=== PATIENT | male | born 1935 | race Caucasian/White ===

== ENCOUNTER 2018-06-05 17:04 | Inpatient (IN) | payer MEDICARE ==
[2018-06-05] MEDS: SOD CHLORIDE 0.9% 1,950 ML IV (17:38)
[2018-06-05 17:54] LABS: ADD MAN DIFF? NO
[2018-06-05 18:16] LABS: WHITE BLOOD COUNT 20.9 10^3/ul (4.8-10.8)
[2018-06-05 18:16] LABS: BASOPHIL # 0.1 10^3/ul (0.0-0.1); BASOPHILS % 0.2 % (0.0-2.0); EOSINOPHILS % 0.1 % (0.0-7.0); HEMATOCRIT 28.1 % (42.0-52.0); HEMOGLOBIN 9.1 g/dl (14.0-18.0); LYMPHOCYTES % 9.6 % (15.0-51.0); MEAN CORPUSCULAR HEMOGLOBIN 29.9 pg (29.0-33.0); MEAN CORPUSCULAR HGB CONC 32.4 g/dl (32.0-37.0); MEAN CORPUSCULAR VOLUME 92.4 fl (82.0-101.0); MEAN PLATELET VOLUME 11.6 fl (7.4-10.4); MONOCYTE # 1.5 10^3/ul (0.3-0.9); MONOCYTES % 7.2 % (0.0-11.0); NEUTROPHIL # 17.1 10^3/ul (1.6-7.5); NEUTROPHILS % 81.8 % (39.0-77.0); PLATELET COUNT 303 10^3/UL (140-415); RED BLOOD COUNT 3.04 10^6/ul (4.70-6.10); RED CELL DISTRIBUTION WIDTH 13.2 % (11.5-14.5)
[2018-06-05 18:18] LABS: ALANINE AMINOTRANSFERASE 28 IU/L (13-69); ALBUMIN 3.2 g/dl (3.3-4.9); ALBUMIN/GLOBULIN RATIO 0.72; ALKALINE PHOSPHATASE 118 IU/L (42-121); ANION GAP 9 (5-13); ASPARTATE AMINO TRANSFERASE 54 IU/L (15-46); BILIRUBIN,INDIRECT 0.2 mg/dl (0-1.1); BILIRUBIN,TOTAL 0.2 mg/dl (0.2-1.3); BLOOD UREA NITROGEN 82 mg/dl (7-20); CALCIUM 9.2 mg/dl (8.4-10.2); CARBON DIOXIDE 21 mmol/L (21-31); CHLORIDE 106 mmol/L (97-110); CREATININE 1.69 mg/dl (0.61-1.24); GLUCOSE 245 mg/dl (70-220); POTASSIUM 5.4 mmol/L (3.5-5.1); SODIUM 136 mmol/L (135-144); TOTAL PROTEIN 7.6 g/dl (6.1-8.1)
[2018-06-05 18:19] LABS: LACTIC ACID 1.3 mmol/L (0.5-2.0)
[2018-06-05 18:56] LABS: ADD UMIC YES; UR ASCORBIC ACID 20 mg/dL (NEGATIVE); UR BACTERIA MANY /HPF (NONE SEEN); UR BILIRUBIN (Dip) NEGATIVE (NEGATIVE); UR BLOOD (Dip) 2+ mg/dL (NEGATIVE); UR BUDDING YEAST MANY /HPF (NONE SEEN); UR CLARITY TURBID (CLEAR); UR COLOR YELLOW (YELLOW); UR GLUCOSE (Dip) NEGATIVE (NEGATIVE); UR KETONES (Dip) NEGATIVE (NEGATIVE); UR LEUKOCYTE ESTERASE (Dip) 3+ Leu/ul (NEGATIVE); UR NITRITE (Dip) NEGATIVE (NEGATIVE); UR NONSQUAMOUS EPITHELIAL CELL 3 /HPF (NONE SEEN); UR RBC 19 /HPF (0-5); UR SPECIFIC GRAVITY (Dip) 1.012 (1.003-1.030); UR TOTAL PROTEIN (Dip) 2+ mg/dl (NEGATIVE); UR UROBILINOGEN (Dip) NEGATIVE (NEGATIVE); UR WBC > 182 /HPF (0-5)
[2018-06-05] MEDS ORDERED: ONDANSETRON 4 MG INJ IV (19:30)
[2018-06-05] MEDS: PIPER-TAZO 3.375 GM IV (PMX) 100 ML IVPB (19:30)
[2018-06-05] MEDS ORDERED: ACETAMINOPHEN 325 MG TAB PO ×2 (19:30→23:30)
[2018-06-05 23:27] LABS: LACTIC ACID 1.2 mmol/L (0.5-2.0)
[2018-06-05] MEDS: EPOETIN 10000 UNITS/ML VIAL (ONCOLOGY) SC (23:30)
[2018-06-05] MEDS ORDERED: HYDROCODONE/APAP (5/325) TAB PO (23:30)
[2018-06-05] MEDS ORDERED: BISACODYL 10 MG SUPP PR (23:30)
[2018-06-05] MEDS ORDERED: GLUCOSE GEL 15 GRAM TUBE PO ×2 (23:45)
[2018-06-05] MEDS ORDERED: DEXTROSE 50% 50 ML SYRINGE IV (23:45)
[2018-06-05] MEDS ORDERED: GLUCAGON 1 MG INJ IM (23:45)
[2018-06-06] MEDS: CEFTRIAXONE 1 GM/50 ML (PMX) 50 ML IVPB (01:30)
[2018-06-06] MEDS: DEXTROSE 5%-0.45% NACL 1,000 ML IV ×3 (01:35→22:28)
[2018-06-06] MEDS: ACCU-CHEK XX ×4 (02:00→21:00)
[2018-06-06 05:32] LABS: ADD MAN DIFF? NO
[2018-06-06 05:35] LABS: BASOPHIL # 0.1 10^3/ul (0.0-0.1); BASOPHILS % 0.3 % (0.0-2.0); EOSINOPHILS # 0.1 10^3/ul (0.0-0.5); EOSINOPHILS % 0.3 % (0.0-7.0); HEMATOCRIT 27.2 % (42.0-52.0); HEMOGLOBIN 8.8 g/dl (14.0-18.0); LYMPHOCYTES # 1.7 10^3/ul (0.8-2.9); MEAN CORPUSCULAR HEMOGLOBIN 29.8 pg (29.0-33.0); MEAN CORPUSCULAR HGB CONC 32.4 g/dl (32.0-37.0); MEAN CORPUSCULAR VOLUME 92.2 fl (82.0-101.0); MEAN PLATELET VOLUME 11.4 fl (7.4-10.4); MONOCYTE # 1.3 10^3/ul (0.3-0.9); MONOCYTES % 6.8 % (0.0-11.0); NEUTROPHIL # 15.2 10^3/ul (1.6-7.5); NEUTROPHILS % 82.6 % (39.0-77.0); PLATELET COUNT 293 10^3/UL (140-415); RED BLOOD COUNT 2.95 10^6/ul (4.70-6.10)
[2018-06-06 05:35] LABS: WHITE BLOOD COUNT 18.4 10^3/ul (4.8-10.8)
[2018-06-06 06:11] LABS: ANION GAP 10 (5-13); BLOOD UREA NITROGEN 62 mg/dl (7-20); CALCIUM 8.9 mg/dl (8.4-10.2); CARBON DIOXIDE 22 mmol/L (21-31); CHLORIDE 108 mmol/L (97-110); CREATININE 1.56 mg/dl (0.61-1.24); GLUCOSE 245 mg/dl (70-220); POTASSIUM 4.6 mmol/L (3.5-5.1); SODIUM 140 mmol/L (135-144)
[2018-06-06] MEDS: MAGNESIUM HYDROXIDE 30ML CUP PO (10:33)
[2018-06-06] MEDS: DUTASTERIDE 0.5 MG CAP PO (10:33)
[2018-06-06] MEDS: FERROUS SULFATE (EC) 325 MG TAB PO (10:33)
[2018-06-06] MEDS: MEMANTINE 5 MG TAB PO ×2 (10:33→21:05)
[2018-06-06] MEDS: LINAGLIPTIN 5 MG TABLET PO (10:34)
[2018-06-06] MEDS: ASCORBIC ACID 500 MG TAB PO (10:34)
[2018-06-06] MEDS: ASPIRIN (EC) 81 MG TAB PO (10:36)
[2018-06-06] MEDS: ENOXAPARIN 30 MG/0.3 ML SYG SC (10:36)
[2018-06-06] MEDS: INSULIN ASPART [NOVOLOG] 3 ML PEN SC ×4 (10:36→21:00)
[2018-06-06] MEDS: ATORVASTATIN 10 MG TAB PO (21:05)
[2018-06-06] MEDS: TAMSULOSIN (SR) 0.4 MG CAP PO (21:05)
[2018-06-06] MEDS: CEFEPIME 1GM/50 ML (PMX) 50 ML IVPB (21:06)
[2018-06-06] MEDS: MULTIVITAMINS/MINERALS TAB PO (21:08)
[2018-06-06] MEDS: BALSAM PERU/CASTOR OIL 60 GM TUBE TOP (21:09)
[2018-06-06] MEDS: INSULIN GLARGINE [LANTus] (100 UNITS/ML) SYG SC (21:17)
[2018-06-07] MEDS ORDERED: ACCU-CHEK XX (02:00)
[2018-06-07] MEDS: ACCU-CHEK XX ×6 (02:00→20:17)
[2018-06-07 05:48] LABS: ADD MAN DIFF? NO
[2018-06-07 05:54] LABS: WHITE BLOOD COUNT 16.6 10^3/ul (4.8-10.8)
[2018-06-07 05:54] LABS: BASOPHIL # 0.1 10^3/ul (0.0-0.1); BASOPHILS % 0.3 % (0.0-2.0); EOSINOPHILS # 0.2 10^3/ul (0.0-0.5); EOSINOPHILS % 1.1 % (0.0-7.0); HEMATOCRIT 27.4 % (42.0-52.0); HEMOGLOBIN 8.7 g/dl (14.0-18.0); LYMPHOCYTES # 1.7 10^3/ul (0.8-2.9); LYMPHOCYTES % 9.9 % (15.0-51.0); MEAN CORPUSCULAR HEMOGLOBIN 29.4 pg (29.0-33.0); MEAN CORPUSCULAR HGB CONC 31.8 g/dl (32.0-37.0); MEAN CORPUSCULAR VOLUME 92.6 fl (82.0-101.0); MEAN PLATELET VOLUME 11.3 fl (7.4-10.4); MONOCYTE # 1.2 10^3/ul (0.3-0.9); MONOCYTES % 7.5 % (0.0-11.0); NEUTROPHIL # 13.3 10^3/ul (1.6-7.5); NEUTROPHILS % 80.2 % (39.0-77.0); PLATELET COUNT 286 10^3/UL (140-415); RED BLOOD COUNT 2.96 10^6/ul (4.70-6.10)
[2018-06-07 06:24] LABS: ANION GAP 8 (5-13); BLOOD UREA NITROGEN 46 mg/dl (7-20); CALCIUM 8.9 mg/dl (8.4-10.2); CARBON DIOXIDE 22 mmol/L (21-31); CHLORIDE 115 mmol/L (97-110); CREATININE 1.22 mg/dl (0.61-1.24); GLUCOSE 129 mg/dl (70-220); SODIUM 145 mmol/L (135-144)
[2018-06-07 06:25] LABS: MAGNESIUM 2.4 mg/dl (1.7-2.5)
[2018-06-07] MEDS: INSULIN ASPART [NOVOLOG] 3 ML PEN SC ×5 (08:00→20:10)
[2018-06-07] MEDS: ENOXAPARIN 30 MG/0.3 ML SYG SC ×2 (08:02→08:15)
[2018-06-07] MEDS: DUTASTERIDE 0.5 MG CAP PO ×2 (08:02→08:07)
[2018-06-07] MEDS: FERROUS SULFATE (EC) 325 MG TAB PO (08:03)
[2018-06-07] MEDS: ASPIRIN (EC) 81 MG TAB PO (08:03)
[2018-06-07] MEDS: LINAGLIPTIN 5 MG TABLET PO (08:03)
[2018-06-07] MEDS: ASCORBIC ACID 500 MG TAB PO (08:03)
[2018-06-07] MEDS: MULTIVITAMINS/MINERALS TAB PO (08:03)
[2018-06-07] MEDS: MEMANTINE 5 MG TAB PO ×2 (08:03→20:08)
[2018-06-07] MEDS: BALSAM PERU/CASTOR OIL 60 GM TUBE TOP ×2 (08:04→20:11)
[2018-06-07] MEDS: CEFEPIME 1GM/50 ML (PMX) 50 ML IVPB ×2 (08:04→20:08)
[2018-06-07] MEDS: MAGNESIUM HYDROXIDE 30ML CUP PO (08:04)
[2018-06-07] MEDS: FLUCONAZOLE 100 MG TAB PO (13:14)
[2018-06-07] MEDS ORDERED: VANCOMYCIN IV PER PHARMACY XX (15:00)
[2018-06-07] MEDS: DEXTROSE 5%-0.45% NACL 1,000 ML IV (17:29)
[2018-06-07] MEDS: VANCOMYCIN 750 MG (PMX) 250 ML IVPB (17:29)
[2018-06-07] MEDS: ATORVASTATIN 10 MG TAB PO (20:08)
[2018-06-07] MEDS: TAMSULOSIN (SR) 0.4 MG CAP PO (20:08)
[2018-06-07] MEDS: INSULIN GLARGINE [LANTus] (100 UNITS/ML) SYG SC (20:17)
[2018-06-08] MEDS: DEXTROSE 5%-0.45% NACL 1,000 ML IV ×2 (01:30→17:23)
[2018-06-08] MEDS: ACCU-CHEK XX ×5 (02:00→22:19)
[2018-06-08 05:35] LABS: ADD MAN DIFF? NO
[2018-06-08 05:40] LABS: BASOPHILS % 0.2 % (0.0-2.0); EOSINOPHILS # 0.3 10^3/ul (0.0-0.5); EOSINOPHILS % 2.4 % (0.0-7.0); HEMATOCRIT 26.3 % (42.0-52.0); HEMOGLOBIN 8.4 g/dl (14.0-18.0); LYMPHOCYTES # 1.7 10^3/ul (0.8-2.9); MEAN CORPUSCULAR HEMOGLOBIN 29.6 pg (29.0-33.0); MEAN CORPUSCULAR HGB CONC 31.9 g/dl (32.0-37.0); MEAN CORPUSCULAR VOLUME 92.6 fl (82.0-101.0); MEAN PLATELET VOLUME 11.1 fl (7.4-10.4); MONOCYTES % 6.9 % (0.0-11.0); NEUTROPHIL # 11.1 10^3/ul (1.6-7.5); NEUTROPHILS % 77.8 % (39.0-77.0); PLATELET COUNT 285 10^3/UL (140-415); RED BLOOD COUNT 2.84 10^6/ul (4.70-6.10); RED CELL DISTRIBUTION WIDTH 13.1 % (11.5-14.5)
[2018-06-08 05:40] LABS: WHITE BLOOD COUNT 14.2 10^3/ul (4.8-10.8)
[2018-06-08 06:08] LABS: ANION GAP 7 (5-13); BLOOD UREA NITROGEN 34 mg/dl (7-20); CALCIUM 8.6 mg/dl (8.4-10.2); CARBON DIOXIDE 20 mmol/L (21-31); CHLORIDE 114 mmol/L (97-110); GLUCOSE 82 mg/dl (70-220); POTASSIUM 4.2 mmol/L (3.5-5.1); SODIUM 141 mmol/L (135-144)
[2018-06-08 06:10] LABS: CREATININE 1.07 mg/dl (0.61-1.24)
[2018-06-08 06:10] LABS: BLOOD UREA NITROGEN 34 mg/dl (7-20)
[2018-06-08] MEDS: INSULIN ASPART [NOVOLOG] 3 ML PEN SC ×4 (08:00→22:15)
[2018-06-08] MEDS: SILVER SULFADIAZINE 1% 25 GM CR TOP (09:00)
[2018-06-08] MEDS: MAGNESIUM HYDROXIDE 30ML CUP PO (09:00)
[2018-06-08] MEDS: FERROUS SULFATE (EC) 325 MG TAB PO (09:11)
[2018-06-08] MEDS: ASCORBIC ACID 500 MG TAB PO (09:11)
[2018-06-08] MEDS: DUTASTERIDE 0.5 MG CAP PO (09:11)
[2018-06-08] MEDS: ASPIRIN (EC) 81 MG TAB PO (09:11)
[2018-06-08] MEDS: CEFEPIME 1GM/50 ML (PMX) 50 ML IVPB ×2 (09:12→22:15)
[2018-06-08] MEDS: LINAGLIPTIN 5 MG TABLET PO (09:18)
[2018-06-08] MEDS: MULTIVITAMINS/MINERALS TAB PO (09:18)
[2018-06-08] MEDS: MEMANTINE 5 MG TAB PO ×2 (09:18→22:19)
[2018-06-08] MEDS: FLUCONAZOLE 100 MG TAB PO (09:19)
[2018-06-08] MEDS: ENOXAPARIN 30 MG/0.3 ML SYG SC (09:25)
[2018-06-08] MEDS: BALSAM PERU/CASTOR OIL 60 GM TUBE TOP ×2 (09:26→22:19)
[2018-06-08] MEDS: INSULIN GLARGINE [LANTus] (100 UNITS/ML) SYG SC (22:00)
[2018-06-08] MEDS: ATORVASTATIN 10 MG TAB PO (22:18)
[2018-06-08] MEDS: TAMSULOSIN (SR) 0.4 MG CAP PO (22:18)
[2018-06-09] MEDS: ACCU-CHEK XX ×6 (00:44→20:59)
[2018-06-09] MEDS: VANCOMYCIN 500 MG (PMX) 100 ML IVPB (04:56)
[2018-06-09] MEDS: FERROUS SULFATE (EC) 325 MG TAB PO (08:18)
[2018-06-09] MEDS: MULTIVITAMINS/MINERALS TAB PO (08:18)
[2018-06-09] MEDS: ASPIRIN (EC) 81 MG TAB PO (08:18)
[2018-06-09] MEDS: FLUCONAZOLE 100 MG TAB PO (08:19)
[2018-06-09] MEDS: ASCORBIC ACID 500 MG TAB PO (08:19)
[2018-06-09] MEDS: CEFEPIME 1GM/50 ML (PMX) 50 ML IVPB ×2 (08:19→20:51)
[2018-06-09] MEDS: LINAGLIPTIN 5 MG TABLET PO (08:19)
[2018-06-09] MEDS: INSULIN ASPART [NOVOLOG] 3 ML PEN SC ×4 (08:23→20:53)
[2018-06-09] MEDS: ENOXAPARIN 30 MG/0.3 ML SYG SC (08:24)
[2018-06-09] MEDS: BALSAM PERU/CASTOR OIL 60 GM TUBE TOP ×4 (08:25→20:58)
[2018-06-09] MEDS: SILVER SULFADIAZINE 1% 25 GM CR TOP (08:32)
[2018-06-09] MEDS: MEMANTINE 5 MG TAB PO ×2 (08:32→20:52)
[2018-06-09] MEDS: MAGNESIUM HYDROXIDE 30ML CUP PO (08:33)
[2018-06-09] MEDS: DUTASTERIDE 0.5 MG CAP PO (08:47)
[2018-06-09] MEDS: DEXTROSE 5%-0.45% NACL 1,000 ML IV (11:46)
[2018-06-09 12:08] LABS: ADD MAN DIFF? NO
[2018-06-09 12:21] LABS: WHITE BLOOD COUNT 14.4 10^3/ul (4.8-10.8)
[2018-06-09 12:21] LABS: BASOPHILS % 0.2 % (0.0-2.0); EOSINOPHILS # 0.2 10^3/ul (0.0-0.5); EOSINOPHILS % 1.5 % (0.0-7.0); HEMATOCRIT 25.9 % (42.0-52.0); HEMOGLOBIN 8.3 g/dl (14.0-18.0); LYMPHOCYTES # 1.4 10^3/ul (0.8-2.9); MEAN CORPUSCULAR VOLUME 90.6 fl (82.0-101.0); MONOCYTE # 0.9 10^3/ul (0.3-0.9); MONOCYTES % 6.4 % (0.0-11.0); NEUTROPHIL # 11.7 10^3/ul (1.6-7.5); PLATELET COUNT 294 10^3/UL (140-415); RED BLOOD COUNT 2.86 10^6/ul (4.70-6.10)
[2018-06-09 12:36] LABS: ANION GAP 6 (5-13); BLOOD UREA NITROGEN 27 mg/dl (7-20); CALCIUM 8.6 mg/dl (8.4-10.2); CARBON DIOXIDE 22 mmol/L (21-31); CHLORIDE 112 mmol/L (97-110); CREATININE 1.02 mg/dl (0.61-1.24); GLUCOSE 238 mg/dl (70-220); POTASSIUM 3.8 mmol/L (3.5-5.1); SODIUM 140 mmol/L (135-144)
[2018-06-09] MEDS: ATORVASTATIN 10 MG TAB PO (20:52)
[2018-06-09] MEDS: TAMSULOSIN (SR) 0.4 MG CAP PO (20:52)
[2018-06-09] MEDS: INSULIN GLARGINE [LANTus] (100 UNITS/ML) SYG SC (20:57)
[2018-06-10] MEDS: DEXTROSE 5%-0.45% NACL 1,000 ML IV (05:05)
[2018-06-10] MEDS: INSULIN ASPART [NOVOLOG] 3 ML PEN SC ×4 (08:00→21:00)
[2018-06-10] MEDS: ACCU-CHEK XX ×4 (08:25→21:00)
[2018-06-10] MEDS: MAGNESIUM HYDROXIDE 30ML CUP PO (09:07)
[2018-06-10] MEDS: FERROUS SULFATE (EC) 325 MG TAB PO (09:07)
[2018-06-10] MEDS: CEFEPIME 1GM/50 ML (PMX) 50 ML IVPB ×2 (09:07→21:03)
[2018-06-10] MEDS: MEMANTINE 5 MG TAB PO ×2 (09:07→21:04)
[2018-06-10] MEDS: ASCORBIC ACID 500 MG TAB PO (09:07)
[2018-06-10] MEDS: MULTIVITAMINS/MINERALS TAB PO (09:07)
[2018-06-10] MEDS: DUTASTERIDE 0.5 MG CAP PO (09:07)
[2018-06-10] MEDS: FLUCONAZOLE 100 MG TAB PO (09:07)
[2018-06-10] MEDS: SILVER SULFADIAZINE 1% 25 GM CR TOP (09:08)
[2018-06-10] MEDS: LINAGLIPTIN 5 MG TABLET PO (09:08)
[2018-06-10] MEDS: BALSAM PERU/CASTOR OIL 60 GM TUBE TOP ×2 (09:08→21:05)
[2018-06-10] MEDS: ASPIRIN (EC) 81 MG TAB PO (09:08)
[2018-06-10] MEDS: ENOXAPARIN 30 MG/0.3 ML SYG SC (09:11)
[2018-06-10] MEDS: VANCOMYCIN 500 MG (PMX) 100 ML IVPB (17:59)
[2018-06-10] MEDS: INSULIN GLARGINE [LANTus] (100 UNITS/ML) SYG SC (21:03)
[2018-06-10] MEDS: TAMSULOSIN (SR) 0.4 MG CAP PO (21:04)
[2018-06-10] MEDS: ATORVASTATIN 10 MG TAB PO (21:04)
[2018-06-11] MEDS: DEXTROSE 5%-0.45% NACL 1,000 ML IV ×3 (00:46→19:48)
[2018-06-11] MEDS: ACCU-CHEK XX ×5 (02:00→20:56)
[2018-06-11 05:30] LABS: ADD MAN DIFF? NO
[2018-06-11 05:47] LABS: WHITE BLOOD COUNT 10.4 10^3/ul (4.8-10.8)
[2018-06-11 05:47] LABS: BASOPHILS % 0.4 % (0.0-2.0); EOSINOPHILS # 0.2 10^3/ul (0.0-0.5); HEMATOCRIT 24.3 % (42.0-52.0); HEMOGLOBIN 7.8 g/dl (14.0-18.0); LYMPHOCYTES # 1.7 10^3/ul (0.8-2.9); LYMPHOCYTES % 16.6 % (15.0-51.0); MEAN CORPUSCULAR HEMOGLOBIN 29.4 pg (29.0-33.0); MEAN CORPUSCULAR HGB CONC 32.1 g/dl (32.0-37.0); MEAN CORPUSCULAR VOLUME 91.7 fl (82.0-101.0); MEAN PLATELET VOLUME 10.8 fl (7.4-10.4); MONOCYTE # 0.8 10^3/ul (0.3-0.9); MONOCYTES % 7.8 % (0.0-11.0); NEUTROPHIL # 7.5 10^3/ul (1.6-7.5); NEUTROPHILS % 72.2 % (39.0-77.0); PLATELET COUNT 276 10^3/UL (140-415); RED BLOOD COUNT 2.65 10^6/ul (4.70-6.10); RED CELL DISTRIBUTION WIDTH 12.8 % (11.5-14.5)
[2018-06-11 05:59] LABS: ANION GAP 5 (5-13); BLOOD UREA NITROGEN 17 mg/dl (7-20); CALCIUM 8.4 mg/dl (8.4-10.2); CARBON DIOXIDE 21 mmol/L (21-31); CHLORIDE 112 mmol/L (97-110); CREATININE 0.88 mg/dl (0.61-1.24); GLUCOSE 78 mg/dl (70-220); POTASSIUM 3.7 mmol/L (3.5-5.1); SODIUM 138 mmol/L (135-144)
[2018-06-11] MEDS: INSULIN ASPART [NOVOLOG] 3 ML PEN SC ×4 (08:00→20:55)
[2018-06-11] MEDS: CEFEPIME 1GM/50 ML (PMX) 50 ML IVPB ×2 (09:52→20:54)
[2018-06-11] MEDS: DUTASTERIDE 0.5 MG CAP PO (09:52)
[2018-06-11] MEDS: FERROUS SULFATE (EC) 325 MG TAB PO (09:52)
[2018-06-11] MEDS: MAGNESIUM HYDROXIDE 30ML CUP PO (09:52)
[2018-06-11] MEDS: LINAGLIPTIN 5 MG TABLET PO (09:52)
[2018-06-11] MEDS: ASCORBIC ACID 500 MG TAB PO (09:53)
[2018-06-11] MEDS: MEMANTINE 5 MG TAB PO ×2 (09:53→20:54)
[2018-06-11] MEDS: MULTIVITAMINS/MINERALS TAB PO (09:54)
[2018-06-11] MEDS: ASPIRIN (EC) 81 MG TAB PO (09:54)
[2018-06-11] MEDS: FLUCONAZOLE 100 MG TAB PO (09:54)
[2018-06-11] MEDS: ENOXAPARIN 30 MG/0.3 ML SYG SC (09:55)
[2018-06-11] MEDS: SILVER SULFADIAZINE 1% 25 GM CR TOP (09:55)
[2018-06-11] MEDS: BALSAM PERU/CASTOR OIL 60 GM TUBE TOP ×2 (09:56→20:55)
[2018-06-11] MEDS: EPOETIN ALFA-EPBX (NON-ESRD 10,000 UNIT/ML VIAL SC (14:33)
[2018-06-11] MEDS: VANCOMYCIN 500 MG (PMX) 100 ML IVPB (18:06)
[2018-06-11] MEDS: INSULIN GLARGINE [LANTus] (100 UNITS/ML) SYG SC (20:54)
[2018-06-11] MEDS: ATORVASTATIN 10 MG TAB PO (20:54)
[2018-06-11] MEDS: TAMSULOSIN (SR) 0.4 MG CAP PO (20:54)
[2018-06-12] MEDS: ACCU-CHEK XX ×5 (01:49→20:45)
[2018-06-12 05:23] LABS: ADD MAN DIFF? NO
[2018-06-12 05:29] LABS: HEMATOCRIT 28.3 % (42.0-52.0); MEAN CORPUSCULAR HGB CONC 31.8 g/dl (32.0-37.0); MEAN CORPUSCULAR VOLUME 91.3 fl (82.0-101.0); PLATELET COUNT 286 10^3/UL (140-415); RED CELL DISTRIBUTION WIDTH 12.9 % (11.5-14.5)
[2018-06-12 05:29] LABS: WHITE BLOOD COUNT 9.9 10^3/ul (4.8-10.8)
[2018-06-12 05:30] LABS: BASOPHILS % 0.4 % (0.0-2.0); EOSINOPHILS # 0.2 10^3/ul (0.0-0.5); EOSINOPHILS % 1.6 % (0.0-7.0); LYMPHOCYTES # 1.7 10^3/ul (0.8-2.9); LYMPHOCYTES % 16.7 % (15.0-51.0); MONOCYTE # 0.7 10^3/ul (0.3-0.9); MONOCYTES % 7.2 % (0.0-11.0); NEUTROPHIL # 7.2 10^3/ul (1.6-7.5); NEUTROPHILS % 72.9 % (39.0-77.0)
[2018-06-12 06:13] LABS: ANION GAP 9 (5-13); BLOOD UREA NITROGEN 14 mg/dl (7-20); CALCIUM 8.4 mg/dl (8.4-10.2); CARBON DIOXIDE 21 mmol/L (21-31); CHLORIDE 107 mmol/L (97-110); CREATININE 0.77 mg/dl (0.61-1.24); GLUCOSE 82 mg/dl (70-220); POTASSIUM 3.9 mmol/L (3.5-5.1); SODIUM 137 mmol/L (135-144)
[2018-06-12] MEDS: INSULIN ASPART [NOVOLOG] 3 ML PEN SC ×4 (08:00→20:44)
[2018-06-12] MEDS: FLUCONAZOLE 100 MG TAB PO (09:17)
[2018-06-12] MEDS: DUTASTERIDE 0.5 MG CAP PO (09:18)
[2018-06-12] MEDS: FERROUS SULFATE (EC) 325 MG TAB PO (09:18)
[2018-06-12] MEDS: MEMANTINE 5 MG TAB PO ×2 (09:18→20:41)
[2018-06-12] MEDS: CEFEPIME 1GM/50 ML (PMX) 50 ML IVPB ×2 (09:19→20:41)
[2018-06-12] MEDS: MAGNESIUM HYDROXIDE 30ML CUP PO (09:19)
[2018-06-12] MEDS: LINAGLIPTIN 5 MG TABLET PO (09:19)
[2018-06-12] MEDS: ASCORBIC ACID 500 MG TAB PO (09:19)
[2018-06-12] MEDS: MULTIVITAMINS/MINERALS TAB PO (09:19)
[2018-06-12] MEDS: ASPIRIN (EC) 81 MG TAB PO (09:19)
[2018-06-12] MEDS: BALSAM PERU/CASTOR OIL 60 GM TUBE TOP ×2 (09:20→20:44)
[2018-06-12] MEDS: SILVER SULFADIAZINE 1% 25 GM CR TOP (09:20)
[2018-06-12] MEDS: ENOXAPARIN 30 MG/0.3 ML SYG SC (09:21)
[2018-06-12] MEDS: DEXTROSE 5%-0.45% NACL 1,000 ML IV ×2 (15:05→22:10)
[2018-06-12] MEDS: EPOETIN 10000 UNITS/ML VIAL (ONCOLOGY) SC (17:00)
[2018-06-12 17:46] LABS: VANCOMYCIN,TROUGH 8.4 ug/ml (10.0-20.0)
[2018-06-12] MEDS: VANCOMYCIN 500 MG (PMX) 100 ML IVPB (18:03)
[2018-06-12] MEDS: ATORVASTATIN 10 MG TAB PO (20:41)
[2018-06-12] MEDS: TAMSULOSIN (SR) 0.4 MG CAP PO (20:41)
[2018-06-12] MEDS: INSULIN GLARGINE [LANTus] (100 UNITS/ML) SYG SC (20:44)
[2018-06-13] MEDS: ACCU-CHEK XX ×5 (01:59→21:00)
[2018-06-13 05:30] LABS: PLATELET COUNT 209 10^3/UL (140-415)
[2018-06-13 05:44] LABS: INR 1.19; PROTIME 15.2 Sec (11.9-14.9); PT RATIO 1.2
[2018-06-13 05:45] LABS: PARTIAL THROMBOPLASTIN TIME 37.5 Sec (23.0-35.0); THROMBIN TIME 16.5 SEC (13.8-19.1)
[2018-06-13 05:51] LABS: ANION GAP 7 (5-13); BLOOD UREA NITROGEN 16 mg/dl (7-20); CALCIUM 8.3 mg/dl (8.4-10.2); CARBON DIOXIDE 23 mmol/L (21-31); CHLORIDE 108 mmol/L (97-110); CREATININE 0.94 mg/dl (0.61-1.24); GLUCOSE 61 mg/dl (70-220); POTASSIUM 4.1 mmol/L (3.5-5.1); SODIUM 138 mmol/L (135-144)
[2018-06-13] MEDS: INSULIN ASPART [NOVOLOG] 3 ML PEN SC ×5 (08:00→20:19)
[2018-06-13] MEDS: FLUCONAZOLE 100 MG TAB PO (08:33)
[2018-06-13] MEDS: DUTASTERIDE 0.5 MG CAP PO (08:33)
[2018-06-13] MEDS: ASCORBIC ACID 500 MG TAB PO (08:34)
[2018-06-13] MEDS: MULTIVITAMINS/MINERALS TAB PO (08:34)
[2018-06-13] MEDS: ASPIRIN (EC) 81 MG TAB PO (08:34)
[2018-06-13] MEDS: LINAGLIPTIN 5 MG TABLET PO (08:34)
[2018-06-13] MEDS: MEMANTINE 5 MG TAB PO ×2 (08:34→20:13)
[2018-06-13] MEDS: MAGNESIUM HYDROXIDE 30ML CUP PO (08:34)
[2018-06-13] MEDS: FERROUS SULFATE (EC) 325 MG TAB PO (08:34)
[2018-06-13] MEDS: ENOXAPARIN 30 MG/0.3 ML SYG SC (08:35)
[2018-06-13] MEDS: SILVER SULFADIAZINE 1% 25 GM CR TOP (08:36)
[2018-06-13] MEDS: BALSAM PERU/CASTOR OIL 60 GM TUBE TOP ×2 (08:36→20:19)
[2018-06-13] MEDS: CEFEPIME 1GM/50 ML (PMX) 50 ML IVPB ×2 (08:37→20:13)
[2018-06-13] MEDS: DEXTROSE 50% 50 ML SYRINGE IV ×2 (08:48→12:09)
[2018-06-13] MEDS: DEXTROSE 5%-0.45% NACL 1,000 ML IV ×2 (09:28→14:48)
[2018-06-13] MEDS ORDERED: LIDOCAINE 2% (SDV) 5 ML INJ (10:18)
[2018-06-13] MEDS ORDERED: FENTAnyl 50 MCG/ML VIAL (10:18)
[2018-06-13] MEDS ORDERED: PROPOFOL 20 ML ×2 (10:18→10:28)
[2018-06-13] MEDS ORDERED: ONDANSETRON 4 MG INJ (10:26)
[2018-06-13] MEDS ORDERED: FAMOTIDINE 20 MG INJ (10:26)
[2018-06-13] MEDS: POLYMYXIN/BACITRACIN 1L IRRIG (10:45)
[2018-06-13] MEDS ORDERED: DIPHENHYDRAMINE 50 MG INJ IV (12:30)
[2018-06-13] MEDS ORDERED: MEPERIDINE 25 MG INJ IV (12:30)
[2018-06-13] MEDS ORDERED: FENTAnyl 50 MCG/ML VIAL IV (12:30)
[2018-06-13] MEDS ORDERED: ONDANSETRON 4 MG INJ IV (12:30)
[2018-06-13] MEDS ORDERED: HYDROmorphONE 1 MG/5 ML IV SYRINGE IV ×2 (12:30)
[2018-06-13] MEDS: MEGESTROL (40 MG/ML) 10ML CUP PO (17:33)
[2018-06-13] MEDS: VANCOMYCIN 750 MG (PMX) 250 ML IVPB (17:36)
[2018-06-13] MEDS: INSULIN GLARGINE [LANTus] (100 UNITS/ML) SYG SC (20:00)
[2018-06-13] MEDS: ATORVASTATIN 10 MG TAB PO (20:13)
[2018-06-13] MEDS: TAMSULOSIN (SR) 0.4 MG CAP PO (20:13)
[2018-06-14] MEDS: ACCU-CHEK XX ×5 (02:00→20:53)
[2018-06-14] MEDS: DEXTROSE 5%-0.45% NACL 1,000 ML IV ×2 (03:47→20:22)
[2018-06-14] MEDS: DUTASTERIDE 0.5 MG CAP PO (08:22)
[2018-06-14] MEDS: FLUCONAZOLE 100 MG TAB PO (08:22)
[2018-06-14] MEDS: MEGESTROL (40 MG/ML) 10ML CUP PO (08:22)
[2018-06-14] MEDS: MULTIVITAMINS/MINERALS TAB PO (08:22)
[2018-06-14] MEDS: MEMANTINE 5 MG TAB PO ×2 (08:22→20:52)
[2018-06-14] MEDS: FERROUS SULFATE (EC) 325 MG TAB PO (08:22)
[2018-06-14] MEDS: ASCORBIC ACID 500 MG TAB PO (08:22)
[2018-06-14] MEDS: ASPIRIN (EC) 81 MG TAB PO (08:22)
[2018-06-14] MEDS: LINAGLIPTIN 5 MG TABLET PO (08:22)
[2018-06-14] MEDS: MAGNESIUM HYDROXIDE 30ML CUP PO (08:22)
[2018-06-14] MEDS: BALSAM PERU/CASTOR OIL 60 GM TUBE TOP ×2 (08:23→20:53)
[2018-06-14] MEDS: CEFEPIME 1GM/50 ML (PMX) 50 ML IVPB ×2 (08:23→20:46)
[2018-06-14] MEDS: SILVER SULFADIAZINE 1% 25 GM CR TOP (08:24)
[2018-06-14] MEDS: INSULIN ASPART [NOVOLOG] 3 ML PEN SC ×4 (08:27→20:53)
[2018-06-14] MEDS: ENOXAPARIN 30 MG/0.3 ML SYG SC (08:28)
[2018-06-14] MEDS: VANCOMYCIN 750 MG (PMX) 250 ML IVPB (17:47)
[2018-06-14] MEDS: TAMSULOSIN (SR) 0.4 MG CAP PO (20:52)
[2018-06-14] MEDS: ATORVASTATIN 10 MG TAB PO (20:52)
[2018-06-14] MEDS: INSULIN GLARGINE [LANTus] (100 UNITS/ML) SYG SC (20:52)
[2018-06-15] MEDS: ACCU-CHEK XX ×5 (02:00→21:00)
[2018-06-15 06:12] LABS: ADD MAN DIFF? NO
[2018-06-15 06:20] LABS: WHITE BLOOD COUNT 10.4 10^3/ul (4.8-10.8)
[2018-06-15 06:20] LABS: BASOPHILS % 0.3 % (0.0-2.0); EOSINOPHILS # 0.1 10^3/ul (0.0-0.5); EOSINOPHILS % 1.3 % (0.0-7.0); HEMATOCRIT 23.9 % (42.0-52.0); HEMOGLOBIN 7.7 g/dl (14.0-18.0); LYMPHOCYTES # 2.2 10^3/ul (0.8-2.9); LYMPHOCYTES % 20.7 % (15.0-51.0); MEAN CORPUSCULAR HEMOGLOBIN 29.6 pg (29.0-33.0); MEAN CORPUSCULAR HGB CONC 32.2 g/dl (32.0-37.0); MEAN CORPUSCULAR VOLUME 91.9 fl (82.0-101.0); MEAN PLATELET VOLUME 10.8 fl (7.4-10.4); MONOCYTE # 1.1 10^3/ul (0.3-0.9); MONOCYTES % 10.1 % (0.0-11.0); NEUTROPHIL # 6.9 10^3/ul (1.6-7.5); NEUTROPHILS % 66.5 % (39.0-77.0); PLATELET COUNT 319 10^3/UL (140-415); RED CELL DISTRIBUTION WIDTH 13.2 % (11.5-14.5)
[2018-06-15 06:44] LABS: ANION GAP 5 (5-13); BLOOD UREA NITROGEN 14 mg/dl (7-20); CALCIUM 8.5 mg/dl (8.4-10.2); CARBON DIOXIDE 24 mmol/L (21-31); CHLORIDE 109 mmol/L (97-110); CREATININE 0.89 mg/dl (0.61-1.24); GLUCOSE 207 mg/dl (70-220); SODIUM 138 mmol/L (135-144)
[2018-06-15] MEDS: INSULIN ASPART [NOVOLOG] 3 ML PEN SC ×4 (08:22→21:00)
[2018-06-15] MEDS: FERROUS SULFATE (EC) 325 MG TAB PO (08:23)
[2018-06-15] MEDS: LINAGLIPTIN 5 MG TABLET PO (08:23)
[2018-06-15] MEDS: ENOXAPARIN 30 MG/0.3 ML SYG SC (08:23)
[2018-06-15] MEDS: MEMANTINE 5 MG TAB PO ×2 (08:23→21:24)
[2018-06-15] MEDS: FLUCONAZOLE 100 MG TAB PO (08:23)
[2018-06-15] MEDS: ASCORBIC ACID 500 MG TAB PO (08:23)
[2018-06-15] MEDS: ASPIRIN (EC) 81 MG TAB PO (08:23)
[2018-06-15] MEDS: MULTIVITAMINS/MINERALS TAB PO (08:23)
[2018-06-15] MEDS: MEGESTROL (40 MG/ML) 10ML CUP PO (08:24)
[2018-06-15] MEDS: CEFEPIME 1GM/50 ML (PMX) 50 ML IVPB (08:24)
[2018-06-15] MEDS: MAGNESIUM HYDROXIDE 30ML CUP PO (08:24)
[2018-06-15] MEDS: BALSAM PERU/CASTOR OIL 60 GM TUBE TOP ×2 (08:25→22:18)
[2018-06-15] MEDS: SILVER SULFADIAZINE 1% 25 GM CR TOP (08:25)
[2018-06-15] MEDS: DUTASTERIDE 0.5 MG CAP PO (09:00)
[2018-06-15] MEDS: DEXTROSE 5%-0.45% NACL 1,000 ML IV ×2 (09:54→11:39)
[2018-06-15] MEDS: CEFTRIAXONE 1 GM/50 ML (PMX) 50 ML IVPB (11:39)
[2018-06-15] MEDS: TAMSULOSIN (SR) 0.4 MG CAP PO (21:24)
[2018-06-15] MEDS: ATORVASTATIN 10 MG TAB PO (21:24)
[2018-06-15] MEDS: INSULIN GLARGINE [LANTus] (100 UNITS/ML) SYG SC (21:28)
[2018-06-16] MEDS: ACCU-CHEK XX ×5 (02:00→21:00)
[2018-06-16] MEDS: DEXTROSE 5%-0.45% NACL 1,000 ML IV ×2 (02:54→17:55)
[2018-06-16] MEDS: INSULIN ASPART [NOVOLOG] 3 ML PEN SC ×4 (08:21→21:11)
[2018-06-16] MEDS: ENOXAPARIN 30 MG/0.3 ML SYG SC (08:23)
[2018-06-16] MEDS: MAGNESIUM HYDROXIDE 30ML CUP PO (08:24)
[2018-06-16] MEDS: FERROUS SULFATE (EC) 325 MG TAB PO (08:25)
[2018-06-16] MEDS: MEGESTROL (40 MG/ML) 10ML CUP PO (08:25)
[2018-06-16] MEDS: ASCORBIC ACID 500 MG TAB PO (08:25)
[2018-06-16] MEDS: DUTASTERIDE 0.5 MG CAP PO (08:25)
[2018-06-16] MEDS: MULTIVITAMINS/MINERALS TAB PO (08:25)
[2018-06-16] MEDS: ASPIRIN (EC) 81 MG TAB PO (08:25)
[2018-06-16] MEDS: MEMANTINE 5 MG TAB PO ×2 (08:25→21:07)
[2018-06-16] MEDS: LINAGLIPTIN 5 MG TABLET PO (08:25)
[2018-06-16] MEDS: BALSAM PERU/CASTOR OIL 60 GM TUBE TOP ×2 (08:26→21:13)
[2018-06-16] MEDS: CEFTRIAXONE 1 GM/50 ML (PMX) 50 ML IVPB (13:05)
[2018-06-16] MEDS: SILVER SULFADIAZINE 1% 25 GM CR TOP (16:02)
[2018-06-16] MEDS: TAMSULOSIN (SR) 0.4 MG CAP PO (21:07)
[2018-06-16] MEDS: ATORVASTATIN 10 MG TAB PO (21:07)
[2018-06-16] MEDS: INSULIN GLARGINE [LANTus] (100 UNITS/ML) SYG SC (21:12)
[2018-06-17] MEDS: ACCU-CHEK XX ×5 (01:49→21:00)
[2018-06-17] MEDS: ENOXAPARIN 30 MG/0.3 ML SYG SC (08:27)
[2018-06-17] MEDS: INSULIN ASPART [NOVOLOG] 3 ML PEN SC ×4 (08:27→22:03)
[2018-06-17] MEDS: MEGESTROL (40 MG/ML) 10ML CUP PO (08:28)
[2018-06-17] MEDS: MULTIVITAMINS/MINERALS TAB PO (08:29)
[2018-06-17] MEDS: DUTASTERIDE 0.5 MG CAP PO (08:29)
[2018-06-17] MEDS: ASCORBIC ACID 500 MG TAB PO (08:29)
[2018-06-17] MEDS: LINAGLIPTIN 5 MG TABLET PO (08:29)
[2018-06-17] MEDS: FERROUS SULFATE (EC) 325 MG TAB PO (08:29)
[2018-06-17] MEDS: MAGNESIUM HYDROXIDE 30ML CUP PO (08:29)
[2018-06-17] MEDS: ASPIRIN (EC) 81 MG TAB PO (08:29)
[2018-06-17] MEDS: MEMANTINE 5 MG TAB PO ×2 (08:29→21:57)
[2018-06-17] MEDS: BALSAM PERU/CASTOR OIL 60 GM TUBE TOP ×2 (08:30→21:58)
[2018-06-17] MEDS: SILVER SULFADIAZINE 1% 25 GM CR TOP (08:30)
[2018-06-17] MEDS: DEXTROSE 5%-0.45% NACL 1,000 ML IV (12:13)
[2018-06-17] MEDS: CEFTRIAXONE 1 GM/50 ML (PMX) 50 ML IVPB (12:13)
[2018-06-17 21:55] LABS: ADD MAN DIFF? NO
[2018-06-17 21:56] LABS: WHITE BLOOD COUNT 10.5 10^3/ul (4.8-10.8)
[2018-06-17 21:56] LABS: BASOPHILS % 0.4 % (0.0-2.0); EOSINOPHILS # 0.1 10^3/ul (0.0-0.5); HEMOGLOBIN 8.3 g/dl (14.0-18.0); LYMPHOCYTES % 19.2 % (15.0-51.0); MEAN CORPUSCULAR HEMOGLOBIN 28.9 pg (29.0-33.0); MEAN CORPUSCULAR HGB CONC 31.9 g/dl (32.0-37.0); MEAN CORPUSCULAR VOLUME 90.6 fl (82.0-101.0); MONOCYTE # 1.1 10^3/ul (0.3-0.9); MONOCYTES % 10.2 % (0.0-11.0); NEUTROPHIL # 7.2 10^3/ul (1.6-7.5); NEUTROPHILS % 68.4 % (39.0-77.0); PLATELET COUNT 326 10^3/UL (140-415); RED BLOOD COUNT 2.87 10^6/ul (4.70-6.10); RED CELL DISTRIBUTION WIDTH 13.9 % (11.5-14.5)
[2018-06-17] MEDS: ATORVASTATIN 10 MG TAB PO (21:57)
[2018-06-17] MEDS: TAMSULOSIN (SR) 0.4 MG CAP PO (21:57)
[2018-06-17] MEDS: INSULIN GLARGINE [LANTus] (100 UNITS/ML) SYG SC (22:01)
[2018-06-17 22:12] LABS: URIC ACID 3.9 mg/dl (3.1-7.9)
[2018-06-17 22:12] LABS: CHOL/HDL RATIO 3.8 RATIO; CHOLESTEROL 61 mg/dl (100-200); HDL CHOLESTEROL 16 mg/dl (31-75); LDL CHOLESTEROL,CALCULATED 34 mg/dl; TRIGLYCERIDES 56 mg/dl (0-149)
[2018-06-17 22:18] LABS: HEMOGLOBIN A1C 7.6 % (0-5.9)
[2018-06-18] MEDS: ACCU-CHEK XX ×5 (02:00→21:00)
[2018-06-18] MEDS: INSULIN ASPART [NOVOLOG] 3 ML PEN SC ×4 (08:00→21:22)
[2018-06-18] MEDS: GLUCOSE GEL 15 GRAM TUBE BUCCAL (08:30)
[2018-06-18] MEDS: MAGNESIUM HYDROXIDE 30ML CUP PO (08:42)
[2018-06-18] MEDS: MEGESTROL (40 MG/ML) 10ML CUP PO (08:42)
[2018-06-18] MEDS: MEMANTINE 5 MG TAB PO ×2 (08:43→20:51)
[2018-06-18] MEDS: ASPIRIN (EC) 81 MG TAB PO (08:43)
[2018-06-18] MEDS: MULTIVITAMINS/MINERALS TAB PO (08:43)
[2018-06-18] MEDS: FERROUS SULFATE (EC) 325 MG TAB PO (08:43)
[2018-06-18] MEDS: DUTASTERIDE 0.5 MG CAP PO (08:43)
[2018-06-18] MEDS: ASCORBIC ACID 500 MG TAB PO (08:43)
[2018-06-18] MEDS: BALSAM PERU/CASTOR OIL 60 GM TUBE TOP ×2 (08:44→21:00)
[2018-06-18] MEDS: ENOXAPARIN 30 MG/0.3 ML SYG SC (08:44)
[2018-06-18] MEDS: LINAGLIPTIN 5 MG TABLET PO (08:45)
[2018-06-18] MEDS: SILVER SULFADIAZINE 1% 25 GM CR TOP (08:45)
[2018-06-18] MEDS: CEFTRIAXONE 1 GM/50 ML (PMX) 50 ML IVPB (12:44)
[2018-06-18] MEDS ORDERED: VANCOMYCIN IV PER PHARMACY XX (14:00)
[2018-06-18] MEDS: FLUCONAZOLE 100 MG TAB PO (15:07)
[2018-06-18] MEDS: VANCOMYCIN 750 MG (PMX) 250 ML IVPB (15:12)
[2018-06-18] MEDS: DEXTROSE 5%-0.45% NACL 1,000 ML IV (17:50)
[2018-06-18] MEDS: ATORVASTATIN 10 MG TAB PO (20:51)
[2018-06-18] MEDS: TAMSULOSIN (SR) 0.4 MG CAP PO (20:51)
[2018-06-18] MEDS: INSULIN GLARGINE [LANTus] (100 UNITS/ML) SYG SC (20:53)
[2018-06-19] MEDS: ACCU-CHEK XX ×5 (02:00→20:57)
[2018-06-19] MEDS: GLUCOSE GEL 15 GRAM TUBE BUCCAL (02:50)
[2018-06-19] MEDS: INSULIN ASPART [NOVOLOG] 3 ML PEN SC ×4 (08:00→20:56)
[2018-06-19] MEDS: MAGNESIUM HYDROXIDE 30ML CUP PO (08:28)
[2018-06-19] MEDS: FLUCONAZOLE 100 MG TAB PO (08:28)
[2018-06-19] MEDS: ASPIRIN (EC) 81 MG TAB PO (08:28)
[2018-06-19] MEDS: MULTIVITAMINS/MINERALS TAB PO (08:28)
[2018-06-19] MEDS: FERROUS SULFATE (EC) 325 MG TAB PO (08:28)
[2018-06-19] MEDS: ASCORBIC ACID 500 MG TAB PO (08:28)
[2018-06-19] MEDS: MEMANTINE 5 MG TAB PO ×2 (08:28→20:54)
[2018-06-19] MEDS: MEGESTROL (40 MG/ML) 10ML CUP PO (08:28)
[2018-06-19] MEDS: LINAGLIPTIN 5 MG TABLET PO (08:28)
[2018-06-19] MEDS: SILVER SULFADIAZINE 1% 25 GM CR TOP (08:29)
[2018-06-19] MEDS: BALSAM PERU/CASTOR OIL 60 GM TUBE TOP ×2 (08:29→20:56)
[2018-06-19] MEDS: ENOXAPARIN 30 MG/0.3 ML SYG SC (08:33)
[2018-06-19] MEDS: DUTASTERIDE 0.5 MG CAP PO (08:36)
[2018-06-19] MEDS: DAKINS 0.0125%(1/40) 473 ML SOLUTION TP (08:47)
[2018-06-19] MEDS: LIDOCAINE 1% (MPF) 5 ML VIAL SC (12:35)
[2018-06-19] MEDS: DEXTROSE 5%-0.45% NACL 1,000 ML IV (15:00)
[2018-06-19] MEDS: VANCOMYCIN 750 MG (PMX) 250 ML IVPB (15:39)
[2018-06-19] MEDS: EPOETIN 10000 UNITS/ML VIAL (ONCOLOGY) SC (18:28)
[2018-06-19] MEDS: TAMSULOSIN (SR) 0.4 MG CAP PO (20:54)
[2018-06-19] MEDS: ATORVASTATIN 10 MG TAB PO (20:54)
[2018-06-19] MEDS: INSULIN GLARGINE [LANTus] (100 UNITS/ML) SYG SC (20:55)
[2018-06-20] MEDS: ACCU-CHEK XX ×5 (02:00→20:22)
[2018-06-20] MEDS: DEXTROSE 5%-0.45% NACL 1,000 ML IV ×2 (03:58→14:30)
[2018-06-20 05:40] LABS: ADD MAN DIFF? NO
[2018-06-20 05:58] LABS: BASOPHILS % 0.3 % (0.0-2.0); EOSINOPHILS # 0.1 10^3/ul (0.0-0.5); EOSINOPHILS % 0.8 % (0.0-7.0); HEMATOCRIT 23.3 % (42.0-52.0); HEMOGLOBIN 7.5 g/dl (14.0-18.0); LYMPHOCYTES % 19.9 % (15.0-51.0); MEAN CORPUSCULAR HEMOGLOBIN 29.8 pg (29.0-33.0); MEAN CORPUSCULAR HGB CONC 32.2 g/dl (32.0-37.0); MEAN CORPUSCULAR VOLUME 92.5 fl (82.0-101.0); MEAN PLATELET VOLUME 10.8 fl (7.4-10.4); NEUTROPHIL # 6.7 10^3/ul (1.6-7.5); NEUTROPHILS % 67.9 % (39.0-77.0); PLATELET COUNT 278 10^3/UL (140-415); RED BLOOD COUNT 2.52 10^6/ul (4.70-6.10); RED CELL DISTRIBUTION WIDTH 13.9 % (11.5-14.5)
[2018-06-20 05:58] LABS: WHITE BLOOD COUNT 9.8 10^3/ul (4.8-10.8)
[2018-06-20 06:26] LABS: ANION GAP 6 (5-13); BLOOD UREA NITROGEN 26 mg/dl (7-20); CALCIUM 8.4 mg/dl (8.4-10.2); CARBON DIOXIDE 23 mmol/L (21-31); CHLORIDE 109 mmol/L (97-110); CREATININE 1.33 mg/dl (0.61-1.24); GLUCOSE 117 mg/dl (70-220); POTASSIUM 4.8 mmol/L (3.5-5.1); SODIUM 138 mmol/L (135-144)
[2018-06-20 06:36] LABS: URIC ACID 4.1 mg/dl (3.1-7.9)
[2018-06-20] MEDS: MEGESTROL (40 MG/ML) 10ML CUP PO (08:37)
[2018-06-20] MEDS: DUTASTERIDE 0.5 MG CAP PO (08:37)
[2018-06-20] MEDS: MAGNESIUM HYDROXIDE 30ML CUP PO (08:37)
[2018-06-20] MEDS: ASPIRIN (EC) 81 MG TAB PO (08:37)
[2018-06-20] MEDS: FLUCONAZOLE 100 MG TAB PO (08:37)
[2018-06-20] MEDS: FERROUS SULFATE (EC) 325 MG TAB PO (08:37)
[2018-06-20] MEDS: INSULIN ASPART [NOVOLOG] 3 ML PEN SC ×4 (08:38→20:20)
[2018-06-20] MEDS: MEMANTINE 5 MG TAB PO ×2 (08:38→20:20)
[2018-06-20] MEDS: MULTIVITAMINS/MINERALS TAB PO (08:38)
[2018-06-20] MEDS: LINAGLIPTIN 5 MG TABLET PO (08:38)
[2018-06-20] MEDS: ASCORBIC ACID 500 MG TAB PO (08:38)
[2018-06-20] MEDS: SILVER SULFADIAZINE 1% 25 GM CR TOP (08:39)
[2018-06-20] MEDS: BALSAM PERU/CASTOR OIL 60 GM TUBE TOP ×2 (08:39→20:21)
[2018-06-20] MEDS: DAKINS 0.0125%(1/40) 473 ML SOLUTION TP (08:39)
[2018-06-20] MEDS: ENOXAPARIN 30 MG/0.3 ML SYG SC (09:00)
[2018-06-20 16:07] LABS: VANCOMYCIN,TROUGH 11.9 ug/ml (10.0-20.0)
[2018-06-20] MEDS: VANCOMYCIN 750 MG (PMX) 250 ML IVPB (16:27)
[2018-06-20] MEDS: INSULIN GLARGINE [LANTus] (100 UNITS/ML) SYG SC (20:18)
[2018-06-20] MEDS: TAMSULOSIN (SR) 0.4 MG CAP PO (20:20)
[2018-06-20] MEDS: ATORVASTATIN 10 MG TAB PO (20:20)
[2018-06-21] MEDS: ACCU-CHEK XX ×5 (01:21→21:00)
[2018-06-21 01:47] LABS: IMMEDIATE SPIN CROSSMATCH 1 1
[2018-06-21] MEDS: INSULIN ASPART [NOVOLOG] 3 ML PEN SC ×4 (08:00→20:22)
[2018-06-21 08:45] LABS: ADD MAN DIFF? NO
[2018-06-21 08:49] LABS: BASOPHIL # 0.1 10^3/ul (0.0-0.1); BASOPHILS % 0.7 % (0.0-2.0); EOSINOPHILS # 0.1 10^3/ul (0.0-0.5); EOSINOPHILS % 0.7 % (0.0-7.0); HEMOGLOBIN 9.6 g/dl (14.0-18.0); LYMPHOCYTES # 2.4 10^3/ul (0.8-2.9); LYMPHOCYTES % 22.9 % (15.0-51.0); MEAN CORPUSCULAR HEMOGLOBIN 29.3 pg (29.0-33.0); MEAN CORPUSCULAR VOLUME 91.5 fl (82.0-101.0); MEAN PLATELET VOLUME 10.3 fl (7.4-10.4); MONOCYTE # 0.9 10^3/ul (0.3-0.9); MONOCYTES % 8.2 % (0.0-11.0); NEUTROPHIL # 7.1 10^3/ul (1.6-7.5); NEUTROPHILS % 66.8 % (39.0-77.0); PLATELET COUNT 295 10^3/UL (140-415); RED BLOOD COUNT 3.28 10^6/ul (4.70-6.10); RED CELL DISTRIBUTION WIDTH 14.5 % (11.5-14.5)
[2018-06-21 08:49] LABS: WHITE BLOOD COUNT 10.7 10^3/ul (4.8-10.8)
[2018-06-21] MEDS: SILVER SULFADIAZINE 1% 25 GM CR TOP (09:00)
[2018-06-21] MEDS: DUTASTERIDE 0.5 MG CAP PO (09:00)
[2018-06-21 09:14] LABS: ANION GAP 5 (5-13); BLOOD UREA NITROGEN 22 mg/dl (7-20); CALCIUM 9.4 mg/dl (8.4-10.2); CARBON DIOXIDE 25 mmol/L (21-31); CHLORIDE 111 mmol/L (97-110); GLUCOSE 61 mg/dl (70-220); SODIUM 141 mmol/L (135-144)
[2018-06-21] MEDS: MAGNESIUM HYDROXIDE 30ML CUP PO (09:27)
[2018-06-21] MEDS: MEGESTROL (40 MG/ML) 10ML CUP PO (09:28)
[2018-06-21] MEDS: ASPIRIN (EC) 81 MG TAB PO (09:28)
[2018-06-21] MEDS: MEMANTINE 5 MG TAB PO ×2 (09:28→20:18)
[2018-06-21] MEDS: ASCORBIC ACID 500 MG TAB PO (09:28)
[2018-06-21] MEDS: BALSAM PERU/CASTOR OIL 60 GM TUBE TOP ×2 (09:28→20:18)
[2018-06-21] MEDS: LINAGLIPTIN 5 MG TABLET PO (09:28)
[2018-06-21] MEDS: MULTIVITAMINS/MINERALS TAB PO (09:28)
[2018-06-21] MEDS: FLUCONAZOLE 100 MG TAB PO (09:28)
[2018-06-21] MEDS: FERROUS SULFATE (EC) 325 MG TAB PO (09:28)
[2018-06-21] MEDS: ENOXAPARIN 30 MG/0.3 ML SYG SC (09:30)
[2018-06-21 09:33] LABS: POTASSIUM 5.2 mmol/L (3.5-5.1)
[2018-06-21] MEDS: DAKINS 0.0125%(1/40) 473 ML SOLUTION TP (09:44)
[2018-06-21] MEDS: DEXTROSE 5%-0.45% NACL 1,000 ML IV ×2 (13:17→21:21)
[2018-06-21] MEDS: VANCOMYCIN 750 MG (PMX) 250 ML IVPB (16:04)
[2018-06-21] MEDS: ATORVASTATIN 10 MG TAB PO (20:18)
[2018-06-21] MEDS: TAMSULOSIN (SR) 0.4 MG CAP PO (20:18)
[2018-06-21] MEDS: INSULIN GLARGINE [LANTus] (100 UNITS/ML) SYG SC (20:21)
[2018-06-22] MEDS: ACCU-CHEK XX ×5 (01:24→22:29)
[2018-06-22 05:32] LABS: ADD MAN DIFF? NO
[2018-06-22 05:44] LABS: BASOPHIL # 0.1 10^3/ul (0.0-0.1); BASOPHILS % 0.7 % (0.0-2.0); EOSINOPHILS # 0.1 10^3/ul (0.0-0.5); EOSINOPHILS % 0.8 % (0.0-7.0); HEMATOCRIT 31.7 % (42.0-52.0); HEMOGLOBIN 9.9 g/dl (14.0-18.0); LYMPHOCYTES # 2.3 10^3/ul (0.8-2.9); LYMPHOCYTES % 25.5 % (15.0-51.0); MEAN CORPUSCULAR HEMOGLOBIN 28.7 pg (29.0-33.0); MEAN CORPUSCULAR HGB CONC 31.2 g/dl (32.0-37.0); MEAN CORPUSCULAR VOLUME 91.9 fl (82.0-101.0); MEAN PLATELET VOLUME 10.8 fl (7.4-10.4); MONOCYTE # 0.9 10^3/ul (0.3-0.9); NEUTROPHIL # 5.7 10^3/ul (1.6-7.5); NEUTROPHILS % 62.2 % (39.0-77.0); PLATELET COUNT 293 10^3/UL (140-415); RED BLOOD COUNT 3.45 10^6/ul (4.70-6.10); RED CELL DISTRIBUTION WIDTH 14.6 % (11.5-14.5)
[2018-06-22 05:44] LABS: WHITE BLOOD COUNT 9.2 10^3/ul (4.8-10.8)
[2018-06-22 05:59] LABS: ANION GAP 7 (5-13); BLOOD UREA NITROGEN 22 mg/dl (7-20); CALCIUM 8.8 mg/dl (8.4-10.2); CARBON DIOXIDE 24 mmol/L (21-31); CHLORIDE 106 mmol/L (97-110); CREATININE 1.03 mg/dl (0.61-1.24); GLUCOSE 97 mg/dl (70-220); POTASSIUM 5.1 mmol/L (3.5-5.1); SODIUM 137 mmol/L (135-144)
[2018-06-22] MEDS: INSULIN ASPART [NOVOLOG] 3 ML PEN SC ×4 (08:00→22:28)
[2018-06-22] MEDS: FLUCONAZOLE 100 MG TAB PO (08:38)
[2018-06-22] MEDS: BALSAM PERU/CASTOR OIL 60 GM TUBE TOP ×2 (08:39→22:28)
[2018-06-22] MEDS: DAKINS 0.0125%(1/40) 473 ML SOLUTION TP (08:39)
[2018-06-22] MEDS: FERROUS SULFATE (EC) 325 MG TAB PO (08:47)
[2018-06-22] MEDS: DUTASTERIDE 0.5 MG CAP PO (08:47)
[2018-06-22] MEDS: MULTIVITAMINS/MINERALS TAB PO (08:48)
[2018-06-22] MEDS: MAGNESIUM HYDROXIDE 30ML CUP PO (08:48)
[2018-06-22] MEDS: LINAGLIPTIN 5 MG TABLET PO (08:48)
[2018-06-22] MEDS: ASPIRIN (EC) 81 MG TAB PO (08:48)
[2018-06-22] MEDS: MEGESTROL (40 MG/ML) 10ML CUP PO (08:48)
[2018-06-22] MEDS: MEMANTINE 5 MG TAB PO ×2 (08:48→22:27)
[2018-06-22] MEDS: ENOXAPARIN 30 MG/0.3 ML SYG SC (08:49)
[2018-06-22] MEDS: SILVER SULFADIAZINE 1% 25 GM CR TOP (08:49)
[2018-06-22] MEDS: ASCORBIC ACID 500 MG TAB PO (08:49)
[2018-06-22] MEDS: VANCOMYCIN 750 MG (PMX) 250 ML IVPB (15:47)
[2018-06-22] MEDS ORDERED: POLYMYXIN B 500000 UNIT INJ (16:33)
[2018-06-22] MEDS ORDERED: KETAMINE (50 MG/ML) 10 ML VIAL (17:09)
[2018-06-22] MEDS ORDERED: FENTAnyl 50 MCG/ML VIAL ×2 (17:24→19:04)
[2018-06-22] MEDS ORDERED: MIDAZOLAM 1 MG/ML 2 ML INJ (17:35)
[2018-06-22] MEDS: LIDOCAINE 1% (MPF) 30 ML INJ (17:47)
[2018-06-22] MEDS: BACITRACIN 50000 UNITS INJ (17:47)
[2018-06-22] MEDS: POLYMYXIN B 500000 UNIT INJ (17:47)
[2018-06-22] MEDS ORDERED: CEFAZOLIN 1 GM INJ (18:29)
[2018-06-22] MEDS ORDERED: LIDOCAINE 1%/EPI (1:100,000) (MDV) 20 ML (18:46)
[2018-06-22] MEDS: VANCOMYCIN 1 GM INJ (18:49)
[2018-06-22] MEDS: POLYMYXIN/BACITRACIN 1L IRRIG (18:49)
[2018-06-22] MEDS: BACITRACIN 50000 UNITS INJ IRR (18:50)
[2018-06-22] MEDS ORDERED: FENTAnyl 50 MCG/ML VIAL IV ×5 (19:00→19:30)
[2018-06-22] MEDS ORDERED: HYDROmorphONE 1 MG/5 ML IV SYRINGE IV ×3 (19:00)
[2018-06-22] MEDS ORDERED: ONDANSETRON 4 MG INJ IV ×2 (19:00→19:30)
[2018-06-22] MEDS: FENTAnyl 50 MCG/ML VIAL IV (19:21)
[2018-06-22] MEDS: INSULIN GLARGINE [LANTus] (100 UNITS/ML) SYG SC (22:26)
[2018-06-22] MEDS: ATORVASTATIN 10 MG TAB PO (22:28)
[2018-06-22] MEDS: TAMSULOSIN (SR) 0.4 MG CAP PO (22:28)
[2018-06-23] MEDS: DEXTROSE 5%-0.45% NACL 1,000 ML IV (00:08)
[2018-06-23] MEDS: ACCU-CHEK XX ×6 (02:00→21:00)
[2018-06-23] MEDS: INSULIN ASPART [NOVOLOG] 3 ML PEN SC ×4 (08:00→20:44)
[2018-06-23] MEDS: SILVER SULFADIAZINE 1% 25 GM CR TOP (09:00)
[2018-06-23] MEDS: DAKINS 0.0125%(1/40) 473 ML SOLUTION TP (09:00)
[2018-06-23] MEDS: MULTIVITAMINS/MINERALS TAB PO (09:00)
[2018-06-23] MEDS: BALSAM PERU/CASTOR OIL 60 GM TUBE TOP ×2 (09:00→20:31)
[2018-06-23] MEDS: LINAGLIPTIN 5 MG TABLET PO (09:00)
[2018-06-23] MEDS: ASPIRIN (EC) 81 MG TAB PO (09:00)
[2018-06-23] MEDS: ASCORBIC ACID 500 MG TAB PO (09:00)
[2018-06-23] MEDS: MEGESTROL (40 MG/ML) 10ML CUP PO (09:00)
[2018-06-23] MEDS: DUTASTERIDE 0.5 MG CAP PO (09:00)
[2018-06-23] MEDS: MEMANTINE 5 MG TAB PO ×2 (09:00→20:30)
[2018-06-23] MEDS: FERROUS SULFATE (EC) 325 MG TAB PO (09:00)
[2018-06-23] MEDS: MAGNESIUM HYDROXIDE 30ML CUP PO (09:00)
[2018-06-23] MEDS: FLUCONAZOLE 100 MG TAB PO ×2 (09:00→17:24)
[2018-06-23] MEDS: ENOXAPARIN 30 MG/0.3 ML SYG SC (11:20)
[2018-06-23] MEDS: VANCOMYCIN 750 MG (PMX) 250 ML IVPB (16:06)
[2018-06-23 16:24] LABS: VANCOMYCIN,TROUGH 18.3 ug/ml (10.0-20.0)
[2018-06-23] MEDS: TAMSULOSIN (SR) 0.4 MG CAP PO (20:30)
[2018-06-23] MEDS: ATORVASTATIN 10 MG TAB PO (20:31)
[2018-06-23] MEDS: INSULIN GLARGINE [LANTus] (100 UNITS/ML) SYG SC (20:36)
[2018-06-24] MEDS: DEXTROSE 5%-0.45% NACL 1,000 ML IV ×2 (01:45→20:15)
[2018-06-24] MEDS: ACCU-CHEK XX ×6 (01:46→20:15)
[2018-06-24 05:47] LABS: BLOOD UREA NITROGEN 21 mg/dl (7-20)
[2018-06-24 05:47] LABS: CREATININE 1.13 mg/dl (0.61-1.24)
[2018-06-24] MEDS: INSULIN ASPART [NOVOLOG] 3 ML PEN SC ×4 (08:00→20:14)
[2018-06-24] MEDS: SILVER SULFADIAZINE 1% 25 GM CR TOP (09:00)
[2018-06-24] MEDS: DAKINS 0.0125%(1/40) 473 ML SOLUTION TP (09:00)
[2018-06-24] MEDS: FLUCONAZOLE 100 MG TAB PO (09:35)
[2018-06-24] MEDS: FERROUS SULFATE (EC) 325 MG TAB PO (09:35)
[2018-06-24] MEDS: MEMANTINE 5 MG TAB PO ×2 (09:35→20:14)
[2018-06-24] MEDS: MULTIVITAMINS/MINERALS TAB PO (09:35)
[2018-06-24] MEDS: DUTASTERIDE 0.5 MG CAP PO (09:35)
[2018-06-24] MEDS: ASPIRIN (EC) 81 MG TAB PO (09:35)
[2018-06-24] MEDS: BALSAM PERU/CASTOR OIL 60 GM TUBE TOP ×2 (09:35→20:14)
[2018-06-24] MEDS: MEGESTROL (40 MG/ML) 10ML CUP PO (09:35)
[2018-06-24] MEDS: ASCORBIC ACID 500 MG TAB PO (09:35)
[2018-06-24] MEDS: MAGNESIUM HYDROXIDE 30ML CUP PO (09:35)
[2018-06-24] MEDS: ENOXAPARIN 30 MG/0.3 ML SYG SC (09:38)
[2018-06-24] MEDS: LINAGLIPTIN 5 MG TABLET PO (09:40)
[2018-06-24] MEDS: VANCOMYCIN 750 MG (PMX) 250 ML IVPB ×2 (16:15→22:06)
[2018-06-24] MEDS: ATORVASTATIN 10 MG TAB PO (20:14)
[2018-06-24] MEDS: TAMSULOSIN (SR) 0.4 MG CAP PO (20:14)
[2018-06-24] MEDS: INSULIN GLARGINE [LANTus] (100 UNITS/ML) SYG SC (20:16)
[2018-06-25] MEDS: ACCU-CHEK XX ×5 (01:27→21:48)
[2018-06-25] MEDS: INSULIN ASPART [NOVOLOG] 3 ML PEN SC ×4 (07:46→21:00)
[2018-06-25] MEDS: SILVER SULFADIAZINE 1% 25 GM CR TOP (09:00)
[2018-06-25] MEDS: MEMANTINE 5 MG TAB PO ×2 (09:00→21:40)
[2018-06-25] MEDS: MAGNESIUM HYDROXIDE 30ML CUP PO (09:00)
[2018-06-25] MEDS: MULTIVITAMINS/MINERALS TAB PO (09:00)
[2018-06-25] MEDS: ASPIRIN (EC) 81 MG TAB PO (09:00)
[2018-06-25] MEDS: LINAGLIPTIN 5 MG TABLET PO (09:00)
[2018-06-25] MEDS: DUTASTERIDE 0.5 MG CAP PO (09:00)
[2018-06-25] MEDS: FLUCONAZOLE 100 MG TAB PO (09:00)
[2018-06-25] MEDS: FERROUS SULFATE (EC) 325 MG TAB PO (09:00)
[2018-06-25] MEDS: DAKINS 0.0125%(1/40) 473 ML SOLUTION TP (09:00)
[2018-06-25] MEDS: ASCORBIC ACID 500 MG TAB PO (09:00)
[2018-06-25] MEDS: MEGESTROL (40 MG/ML) 10ML CUP PO (09:00)
[2018-06-25] MEDS: ENOXAPARIN 30 MG/0.3 ML SYG SC (09:52)
[2018-06-25] MEDS: BALSAM PERU/CASTOR OIL 60 GM TUBE TOP ×2 (09:55→21:45)
[2018-06-25] MEDS: DEXTROSE 5%-0.45% NACL 1,000 ML IV ×2 (11:19→17:17)
[2018-06-25] MEDS: COLLAGENASE 5 GM (UD JAR) TOP (18:14)
[2018-06-25] MEDS: TAMSULOSIN (SR) 0.4 MG CAP PO (21:40)
[2018-06-25] MEDS: ATORVASTATIN 10 MG TAB PO (21:40)
[2018-06-25] MEDS: VANCOMYCIN 750 MG (PMX) 250 ML IVPB (21:45)
[2018-06-25] MEDS: INSULIN GLARGINE [LANTus] (100 UNITS/ML) SYG SC (21:48)
[2018-06-26] MEDS: ACCU-CHEK XX ×5 (02:00→21:17)
[2018-06-26] MEDS: INSULIN ASPART [NOVOLOG] 3 ML PEN SC ×4 (07:51→21:23)
[2018-06-26] MEDS: ASCORBIC ACID 500 MG TAB PO (08:06)
[2018-06-26] MEDS: LINAGLIPTIN 5 MG TABLET PO (08:06)
[2018-06-26] MEDS: ASPIRIN (EC) 81 MG TAB PO (08:07)
[2018-06-26] MEDS: FERROUS SULFATE (EC) 325 MG TAB PO (08:07)
[2018-06-26] MEDS: DUTASTERIDE 0.5 MG CAP PO (08:07)
[2018-06-26] MEDS: MAGNESIUM HYDROXIDE 30ML CUP PO (08:07)
[2018-06-26] MEDS: MULTIVITAMINS/MINERALS TAB PO (08:07)
[2018-06-26] MEDS: COLLAGENASE 5 GM (UD JAR) TOP (08:07)
[2018-06-26] MEDS: BALSAM PERU/CASTOR OIL 60 GM TUBE TOP ×2 (08:07→21:17)
[2018-06-26] MEDS: MEGESTROL (40 MG/ML) 10ML CUP PO (08:07)
[2018-06-26] MEDS: FLUCONAZOLE 100 MG TAB PO (08:07)
[2018-06-26] MEDS: MEMANTINE 5 MG TAB PO ×2 (08:07→21:17)
[2018-06-26] MEDS: SILVER SULFADIAZINE 1% 25 GM CR TOP (08:08)
[2018-06-26] MEDS: DAKINS 0.0125%(1/40) 473 ML SOLUTION TP (08:08)
[2018-06-26] MEDS: ENOXAPARIN 30 MG/0.3 ML SYG SC (08:11)
[2018-06-26] MEDS: DEXTROSE 5%-0.45% NACL 1,000 ML IV ×2 (09:27→12:49)
[2018-06-26 10:37] LABS: HEMOGLOBIN 9.3 g/dl (14.0-18.0)
[2018-06-26 11:01] LABS: CREATININE 0.96 mg/dl (0.61-1.24)
[2018-06-26 11:01] LABS: BLOOD UREA NITROGEN 20 mg/dl (7-20)
[2018-06-26] MEDS: EPOETIN 10000 UNITS/ML VIAL (ONCOLOGY) SC (17:37)
[2018-06-26] MEDS: TAMSULOSIN (SR) 0.4 MG CAP PO (21:17)
[2018-06-26] MEDS: ATORVASTATIN 10 MG TAB PO (21:17)
[2018-06-26] MEDS: INSULIN GLARGINE [LANTus] (100 UNITS/ML) SYG SC (21:23)
[2018-06-26] MEDS: VANCOMYCIN 750 MG (PMX) 250 ML IVPB (21:26)
[2018-06-27] MEDS: ACCU-CHEK XX ×5 (02:18→21:10)
[2018-06-27] MEDS: DEXTROSE 5%-0.45% NACL 1,000 ML IV ×2 (06:00→09:17)
[2018-06-27] MEDS: INSULIN ASPART [NOVOLOG] 3 ML PEN SC ×4 (08:00→21:00)
[2018-06-27] MEDS: SILVER SULFADIAZINE 1% 25 GM CR TOP (09:00)
[2018-06-27] MEDS: LINAGLIPTIN 5 MG TABLET PO (09:00)
[2018-06-27] MEDS: MULTIVITAMINS/MINERALS TAB PO (09:42)
[2018-06-27] MEDS: FLUCONAZOLE 100 MG TAB PO (09:42)
[2018-06-27] MEDS: FERROUS SULFATE (EC) 325 MG TAB PO (09:42)
[2018-06-27] MEDS: ASCORBIC ACID 500 MG TAB PO (09:42)
[2018-06-27] MEDS: DUTASTERIDE 0.5 MG CAP PO (09:42)
[2018-06-27] MEDS: ASPIRIN (EC) 81 MG TAB PO (09:42)
[2018-06-27] MEDS: MEMANTINE 5 MG TAB PO ×2 (09:42→21:03)
[2018-06-27] MEDS: MEGESTROL (40 MG/ML) 10ML CUP PO (09:46)
[2018-06-27] MEDS: COLLAGENASE 5 GM (UD JAR) TOP (09:47)
[2018-06-27] MEDS: DAKINS 0.0125%(1/40) 473 ML SOLUTION TP (09:48)
[2018-06-27] MEDS: BALSAM PERU/CASTOR OIL 60 GM TUBE TOP ×2 (09:48→21:09)
[2018-06-27] MEDS: MAGNESIUM HYDROXIDE 30ML CUP PO (09:49)
[2018-06-27] MEDS: ENOXAPARIN 30 MG/0.3 ML SYG SC (09:50)
[2018-06-27] MEDS: TAMSULOSIN (SR) 0.4 MG CAP PO (21:03)
[2018-06-27] MEDS: ATORVASTATIN 10 MG TAB PO (21:03)
[2018-06-27] MEDS: INSULIN GLARGINE [LANTus] (100 UNITS/ML) SYG SC (21:05)
[2018-06-27 21:52] LABS: VANCOMYCIN,TROUGH 16.1 ug/ml (10.0-20.0)
[2018-06-27] MEDS: VANCOMYCIN 750 MG (PMX) 250 ML IVPB (22:34)
[2018-06-28] MEDS: ACCU-CHEK XX ×5 (02:00→20:34)
[2018-06-28] MEDS: DEXTROSE 5%-0.45% NACL 1,000 ML IV ×3 (02:52→23:31)
[2018-06-28 05:39] LABS: ADD MAN DIFF? NO
[2018-06-28 05:46] LABS: BASOPHIL # 0.1 10^3/ul (0.0-0.1); EOSINOPHILS # 0.1 10^3/ul (0.0-0.5); EOSINOPHILS % 2.8 % (0.0-7.0); HEMATOCRIT 30.3 % (42.0-52.0); HEMOGLOBIN 9.3 g/dl (14.0-18.0); LYMPHOCYTES # 1.8 10^3/ul (0.8-2.9); LYMPHOCYTES % 36.2 % (15.0-51.0); MEAN CORPUSCULAR HEMOGLOBIN 28.4 pg (29.0-33.0); MEAN CORPUSCULAR HGB CONC 30.7 g/dl (32.0-37.0); MEAN CORPUSCULAR VOLUME 92.7 fl (82.0-101.0); MEAN PLATELET VOLUME 10.5 fl (7.4-10.4); MONOCYTE # 0.9 10^3/ul (0.3-0.9); MONOCYTES % 17.9 % (0.0-11.0); NEUTROPHIL # 2.1 10^3/ul (1.6-7.5); NEUTROPHILS % 41.5 % (39.0-77.0); PLATELET COUNT 255 10^3/UL (140-415); RED BLOOD COUNT 3.27 10^6/ul (4.70-6.10); RED CELL DISTRIBUTION WIDTH 15.7 % (11.5-14.5)
[2018-06-28 06:20] LABS: ANION GAP 8 (5-13); BLOOD UREA NITROGEN 22 mg/dl (7-20); CALCIUM 8.9 mg/dl (8.4-10.2); CARBON DIOXIDE 21 mmol/L (21-31); CHLORIDE 114 mmol/L (97-110); CREATININE 0.95 mg/dl (0.61-1.24); GLUCOSE 86 mg/dl (70-220); POTASSIUM 5.6 mmol/L (3.5-5.1); SODIUM 143 mmol/L (135-144)
[2018-06-28] MEDS: INSULIN ASPART [NOVOLOG] 3 ML PEN SC ×4 (08:00→20:37)
[2018-06-28] MEDS: ASPIRIN (EC) 81 MG TAB PO (08:08)
[2018-06-28] MEDS: MULTIVITAMINS/MINERALS TAB PO (08:08)
[2018-06-28] MEDS: COLLAGENASE 5 GM (UD JAR) TOP (08:08)
[2018-06-28] MEDS: MEGESTROL (40 MG/ML) 10ML CUP PO (08:08)
[2018-06-28] MEDS: ASCORBIC ACID 500 MG TAB PO (08:08)
[2018-06-28] MEDS: MAGNESIUM HYDROXIDE 30ML CUP PO (08:08)
[2018-06-28] MEDS: MEMANTINE 5 MG TAB PO ×2 (08:08→20:34)
[2018-06-28] MEDS: FERROUS SULFATE (EC) 325 MG TAB PO (08:08)
[2018-06-28] MEDS: SILVER SULFADIAZINE 1% 25 GM CR TOP (08:08)
[2018-06-28] MEDS: DUTASTERIDE 0.5 MG CAP PO (08:08)
[2018-06-28] MEDS: LINAGLIPTIN 5 MG TABLET PO (08:08)
[2018-06-28] MEDS: BALSAM PERU/CASTOR OIL 60 GM TUBE TOP ×2 (08:09→20:34)
[2018-06-28] MEDS: DAKINS 0.0125%(1/40) 473 ML SOLUTION TP (08:09)
[2018-06-28] MEDS: FLUCONAZOLE 100 MG TAB PO (08:09)
[2018-06-28] MEDS: ENOXAPARIN 30 MG/0.3 ML SYG SC (08:14)
[2018-06-28] MEDS: NA POLYST SULFON 15 GM/60 ML BTL PO (11:06)
[2018-06-28] MEDS: ATORVASTATIN 10 MG TAB PO (20:34)
[2018-06-28] MEDS: TAMSULOSIN (SR) 0.4 MG CAP PO (20:34)
[2018-06-28] MEDS: INSULIN GLARGINE [LANTus] (100 UNITS/ML) SYG SC (20:38)
[2018-06-28] MEDS: VANCOMYCIN 750 MG (PMX) 250 ML IVPB (21:35)
[2018-06-29] MEDS: ACCU-CHEK XX ×5 (02:00→21:00)
[2018-06-29 07:30] LABS: ADD MAN DIFF? NO
[2018-06-29 07:48] LABS: BASOPHILS % 0.9 % (0.0-2.0); EOSINOPHILS # 0.2 10^3/ul (0.0-0.5); EOSINOPHILS % 3.3 % (0.0-7.0); HEMATOCRIT 31.1 % (42.0-52.0); HEMOGLOBIN 9.8 g/dl (14.0-18.0); LYMPHOCYTES # 1.8 10^3/ul (0.8-2.9); LYMPHOCYTES % 38.8 % (15.0-51.0); MEAN CORPUSCULAR HEMOGLOBIN 28.8 pg (29.0-33.0); MEAN CORPUSCULAR HGB CONC 31.5 g/dl (32.0-37.0); MEAN CORPUSCULAR VOLUME 91.5 fl (82.0-101.0); MEAN PLATELET VOLUME 10.6 fl (7.4-10.4); MONOCYTE # 0.7 10^3/ul (0.3-0.9); MONOCYTES % 15.6 % (0.0-11.0); NEUTROPHIL # 1.9 10^3/ul (1.6-7.5); NEUTROPHILS % 40.3 % (39.0-77.0); PLATELET COUNT 251 10^3/UL (140-415); RED CELL DISTRIBUTION WIDTH 15.8 % (11.5-14.5)
[2018-06-29 07:48] LABS: WHITE BLOOD COUNT 4.6 10^3/ul (4.8-10.8)
[2018-06-29] MEDS: INSULIN ASPART [NOVOLOG] 3 ML PEN SC ×4 (08:00→21:21)
[2018-06-29 08:01] LABS: ANION GAP 7 (5-13); BLOOD UREA NITROGEN 20 mg/dl (7-20); CALCIUM 8.5 mg/dl (8.4-10.2); CARBON DIOXIDE 22 mmol/L (21-31); CHLORIDE 111 mmol/L (97-110); CREATININE 0.91 mg/dl (0.61-1.24); GLUCOSE 64 mg/dl (70-220); POTASSIUM 4.1 mmol/L (3.5-5.1); SODIUM 140 mmol/L (135-144)
[2018-06-29] MEDS: GLUCOSE GEL 15 GRAM TUBE BUCCAL (08:29)
[2018-06-29] MEDS: COLLAGENASE 5 GM (UD JAR) TOP (08:38)
[2018-06-29] MEDS: FERROUS SULFATE (EC) 325 MG TAB PO (08:38)
[2018-06-29] MEDS: MEMANTINE 5 MG TAB PO ×2 (08:38→21:17)
[2018-06-29] MEDS: MULTIVITAMINS/MINERALS TAB PO (08:38)
[2018-06-29] MEDS: FLUCONAZOLE 100 MG TAB PO (08:38)
[2018-06-29] MEDS: ASPIRIN (EC) 81 MG TAB PO (08:38)
[2018-06-29] MEDS: MEGESTROL (40 MG/ML) 10ML CUP PO (08:38)
[2018-06-29] MEDS: DUTASTERIDE 0.5 MG CAP PO (08:38)
[2018-06-29] MEDS: ASCORBIC ACID 500 MG TAB PO (08:38)
[2018-06-29] MEDS: MAGNESIUM HYDROXIDE 30ML CUP PO (08:38)
[2018-06-29] MEDS: ENOXAPARIN 30 MG/0.3 ML SYG SC (08:41)
[2018-06-29] MEDS: SILVER SULFADIAZINE 1% 25 GM CR TOP (08:44)
[2018-06-29] MEDS: LINAGLIPTIN 5 MG TABLET PO (08:44)
[2018-06-29] MEDS: BALSAM PERU/CASTOR OIL 60 GM TUBE TOP ×2 (08:45→21:17)
[2018-06-29] MEDS: DAKINS 0.0125%(1/40) 473 ML SOLUTION TP (08:45)
[2018-06-29] MEDS: TAMSULOSIN (SR) 0.4 MG CAP PO (21:17)
[2018-06-29] MEDS: ATORVASTATIN 10 MG TAB PO (21:17)
[2018-06-29] MEDS: DEXTROSE 5%-0.45% NACL 1,000 ML IV ×2 (21:17→23:15)
[2018-06-29] MEDS: INSULIN GLARGINE [LANTus] (100 UNITS/ML) SYG SC (21:20)
[2018-06-29] MEDS: VANCOMYCIN 750 MG (PMX) 250 ML IVPB (22:49)
[2018-06-29] MEDS: AMLODIPINE 5 MG TAB PO (23:15)
[2018-06-30] MEDS: ACCU-CHEK XX ×3 (02:00→11:30)
[2018-06-30] MEDS: DUTASTERIDE 0.5 MG CAP PO (09:00)
[2018-06-30] MEDS: SILVER SULFADIAZINE 1% 25 GM CR TOP (09:00)
[2018-06-30] MEDS: INSULIN ASPART [NOVOLOG] 3 ML PEN SC ×2 (09:16→13:01)
[2018-06-30] MEDS: COLLAGENASE 5 GM (UD JAR) TOP (09:26)
[2018-06-30] MEDS: ASCORBIC ACID 500 MG TAB PO (09:27)
[2018-06-30] MEDS: MULTIVITAMINS/MINERALS TAB PO (09:27)
[2018-06-30] MEDS: MEGESTROL (40 MG/ML) 10ML CUP PO (09:27)
[2018-06-30] MEDS: AMLODIPINE 5 MG TAB PO (09:27)
[2018-06-30] MEDS: MAGNESIUM HYDROXIDE 30ML CUP PO (09:27)
[2018-06-30] MEDS: MEMANTINE 5 MG TAB PO (09:28)
[2018-06-30] MEDS: FLUCONAZOLE 100 MG TAB PO (09:28)
[2018-06-30] MEDS: FERROUS SULFATE (EC) 325 MG TAB PO (09:28)
[2018-06-30] MEDS: BALSAM PERU/CASTOR OIL 60 GM TUBE TOP (09:28)
[2018-06-30] MEDS: ASPIRIN (EC) 81 MG TAB PO (09:28)
[2018-06-30] MEDS: DAKINS 0.0125%(1/40) 473 ML SOLUTION TP (09:29)
[2018-06-30] MEDS: LINAGLIPTIN 5 MG TABLET PO (09:32)
[2018-06-30] MEDS: ENOXAPARIN 30 MG/0.3 ML SYG SC (09:37)
== END 2018-06-30 15:22 | DRG 853 ==
LOC: 2NE 06-15 01:43 → E/R 17:04 → 2NE 19:28
PROVIDERS: Internal Medicine
PROC: 0QBQ0ZZ Excision of Right Toe Phalanx, Open Approach (ICD-10-PCS; 2018-06-13 10:00)
PROC: 0QBQ0ZX Excision of Right Toe Phalanx, Open Approach, Diagnostic (ICD-10-PCS; 2018-06-13 10:00)
PROC: 0JBQ0ZZ Excision of Right Foot Subcutaneous Tissue and Fascia, Open Approach (ICD-10-PCS; 2018-06-13 10:00)
PROC: 0LBW0ZZ Excision of Left Foot Tendon, Open Approach (ICD-10-PCS; 2018-06-13 10:00)
PROC: 0JBR0ZZ Excision of Left Foot Subcutaneous Tissue and Fascia, Open Approach (ICD-10-PCS; 2018-06-13 10:00)
PROC: 0HRNXK3 Replacement of Left Foot Skin with Nonautologous Tissue Substitute, Full Thickness, External Approach (ICD-10-PCS; 2018-06-13 10:00)
PROC: 0HRMXK3 Replacement of Right Foot Skin with Nonautologous Tissue Substitute, Full Thickness, External Approach (ICD-10-PCS; 2018-06-13 10:00)
PROC: 02HV33Z Insertion of Infusion Device into Superior Vena Cava, Percutaneous Approach (ICD-10-PCS; principal; 2018-06-13 10:14)
PROC: 0Y6M0Z9 Detachment at Right Foot, Partial 1st Ray, Open Approach (ICD-10-PCS; 2018-06-13 10:14)
PROC: 0JBR0ZZ Excision of Left Foot Subcutaneous Tissue and Fascia, Open Approach (ICD-10-PCS; 2018-06-13 10:14)
PROC: 0JBR0ZZ Excision of Left Foot Subcutaneous Tissue and Fascia, Open Approach (ICD-10-PCS; 2018-06-13 10:14)
DX: A41.9 Sepsis, unspecified organism (principal); L89.623 Pressure ulcer of left heel, stage 3; L89.613 Pressure ulcer of right heel, stage 3; L89.523 Pressure ulcer of left ankle, stage 3; E43 Unspecified severe protein-calorie malnutrition; G93.41 Metabolic encephalopathy; N17.9 Acute kidney failure, unspecified; Z68.1 Body mass index [BMI] 19.9 or less, adult; E11.52 Type 2 diabetes mellitus with diabetic peripheral angiopathy with gangrene; L03.115 Cellulitis of right lower limb; M86.171 Other acute osteomyelitis, right ankle and foot; L03.116 Cellulitis of left lower limb; B37.49 Other urogenital candidiasis; I96 Gangrene, not elsewhere classified; I12.9 Hypertensive chronic kidney disease with stage 1 through stage 4 chronic kidney disease, or unspecified chronic kidney disease; E11.22 Type 2 diabetes mellitus with diabetic chronic kidney disease; N18.9 Chronic kidney disease, unspecified; E78.5 Hyperlipidemia, unspecified; R13.10 Dysphagia, unspecified; F03.90 Unspecified dementia, unspecified severity, without behavioral disturbance, psychotic disturbance, mood disturbance, and anxiety; N40.0 Benign prostatic hyperplasia without lower urinary tract symptoms; E87.5 Hyperkalemia; D63.1 Anemia in chronic kidney disease; L89.511 Pressure ulcer of right ankle, stage 1; L89.891 Pressure ulcer of other site, stage 1; L89.151 Pressure ulcer of sacral region, stage 1; E11.621 Type 2 diabetes mellitus with foot ulcer; E11.69 Type 2 diabetes mellitus with other specified complication; M21.372 Foot drop, left foot; M21.371 Foot drop, right foot; L03.031 Cellulitis of right toe; E11.649 Type 2 diabetes mellitus with hypoglycemia without coma; M1A.9XX1 Chronic gout, unspecified, with tophus (tophi); B95.62 Methicillin resistant Staphylococcus aureus infection as the cause of diseases classified elsewhere; L97.529 Non-pressure chronic ulcer of other part of left foot with unspecified severity; L97.519 Non-pressure chronic ulcer of other part of right foot with unspecified severity; Z66 Do not resuscitate
CPT/HCPCS: 36415; 36430; 36569; 71045; 76937; 80048; 80053; 80061; 80202; 81001; 82565; 82962; 83036; 83605; 83735; 84520; 84560; 85018; 85025; 85049; 85610; 85670; 85730; 86850; 86900; 86901; 86920; 87040-91; 87070; 87075; 87086; 87102; 88304; 88311; 93005; 93922; 99285-25; J0885